=== PATIENT | female | born 1975 | race Caucasian/White ===

== ENCOUNTER 2023-05-23 08:56 | Outpatient (CLI) | payer BC | END 2023-05-23 08:57 | disposition home or self-care (01) | LOC: RAD 08:56 | PROVIDERS: ATTEND Family Medicine | DX: M54.16 Radiculopathy, lumbar region (principal) ==

== ENCOUNTER 2023-06-17 13:27 | Outpatient (CLI) | payer BC | END 2023-06-17 13:28 | disposition home or self-care (01) | LOC: DTY/OP 13:27 | PROVIDERS: ATTEND Surgery | DX: E66.01 Morbid (severe) obesity due to excess calories (principal) | CPT/HCPCS: 97802 ==

== ENCOUNTER 2023-09-19 09:37 | Day surgery (SDC) | payer BC, SELFPAY ==
[2023-09-19] MEDS ORDERED: Ondansetron PF 4 MG/2 ML Vial IVP PRN (10:03)
[2023-09-19] MEDS: Sodium Chloride 0.9% 1,000 ML IV SCH (10:15)
[2023-09-19] MEDS: [UNRECOGNIZED DRUG - OTHER] IV SCH (11:09)
[2023-09-19] MEDS: ADMIXTURE FEE IV SCH (11:09)
[2023-09-19] MEDS: THIAMINE HCL IV SCH (11:09)
[2023-09-19] MEDS: MULTIVITAMINS IV SCH (11:09)
[2023-09-19 11:16] VITALS: BP 136/68; TEMP 98.6
== END 2023-09-19 12:59 | disposition home or self-care (01) ==
LOC: ONC/OP 09:37
PROVIDERS: ATTEND Surgery
DX: E86.0 Dehydration (principal)
CPT/HCPCS: 96360; 96361; J3411; J7050

== ENCOUNTER 2024-11-07 10:19 | Outpatient (CLI) | payer BC | END 2024-11-07 10:20 | disposition home or self-care (01) | LOC: MRI 10:19 | DX: M25.512 Pain in left shoulder (principal); M75.122 Complete rotator cuff tear or rupture of left shoulder, not specified as traumatic ==